=== PATIENT | female | born 1985 | race Caucasian/White ===

== ENCOUNTER → 2020-12-10 | Outpatient (CLI) | payer OTHER ==
--- NOTE | 2020-12-10 13:56 | RAD ---
XR ABDOMEN COMP ACUTE History: Reason: RUQ PAIN / Spl. Instructions: / History: Comparison: None. Technique: PA chest. Upright and supine radiographs of the abdomen. 5 total images. Findings: Lungs are adequately and symmetrically inflated. No airspace consolidation, pleural effusion or pneum othorax. Cardiac silhouette and pulmonary vasculature are within normal limits. Nonobstructive bowel gas pattern with stool and air throughout the colon to the rectum. No differenti al air-fluid levels or subcutaneous diaphragmatic free air. Postsurgical changes with chain sutures in the left upper quadrant and left midabdomen, possible carley luz maria bypass. Right upper quadrant cholecystectomy clips and left mid abdomen clips. Ovoid 1.3 cm calci fic density projecting over the lower pole left kidney and a few punctate densities projecting at the upper pole left kidney. Intrauterine device projects in the pelvis. No acute osseous abnormalities. Impression: 1. No acute cardiopulmonary findings. 2. Multiple calcific densities projecting over the bilateral kidneys may represent nephrolithiasis. No ureterolithiasis identified. 3. Nonobstructive bowel gas pattern. Suspected history of gastrointestinal surgery. Electronically signed by: Tomy Martell MD (12/10/2020 1:53 PM) [facility]
== END ==
LOC: RAD 12:42
PROVIDERS: ATTEND Family Medicine
DX: R10.11 Right upper quadrant pain (principal)
CPT/HCPCS: 74022

== ENCOUNTER 2020-12-31 23:18 | Emergency (ER) | payer OTHER ==
[~2020-12-31] VITALS: Ht 177.8 cm; Wt 158.0 kg
[2021-01-01] MEDS ORDERED: ONDANSETRON PF 4 MG/2 ML VIAL. IVP ONE (00:15)
[2021-01-01] MEDS ORDERED: MORPHINE SULFATE 4 MG/ML DISP.SYRIN. IV ONE ×2 (00:15→01:30)
[2021-01-01 00:38] LABS: BACTERIA,URINE 0 /HPF (0-FEW); BILIRUBIN,URINE NEG (NEG); CLARITY,URINE CLEAR; COLOR,URINE YELLOW; GLUCOSE,URINE NEG (NEG); NITRITE,URINE NEG (NEG); RBC,URINE 0 /HPF (0-2); SQUAMOUS EPITHELIAL CELL,UR OCC /LPF; UROBILINOGEN,URINE 0.2 mg/dL (0.2 mg/dL); WBC,URINE OCC /HPF (0-4)
[2021-01-01 00:56] LABS: BASO % 0 % (0-3); EOS % 0 % (0-3); HEMATOCRIT 36.3 % (36.0-47.0); LYMPH # 2.1 x10^3/uL (1.0-4.8); LYMPH % 22 % (24-48); MEAN CORPUSCULAR HEMOGLOBIN 31 pg (25-35); MEAN CORPUSCULAR HGB CONC 33 g/dL (31-37); MEAN CORPUSCULAR VOLUME 93 fL (79-100); MONO # 0.6 x10^3/uL (0.0-1.1); MONO % 7 % (0-9); NEUT # 6.7 x10^3uL (1.8-7.7); NEUT % 71 % (31-73); PLATELET COUNT 212 x10^3/uL (140-400); RED BLOOD COUNT 3.91 x10^6/uL (3.50-5.40); RED CELL DISTRIBUTION WIDTH 13.4 % (11.5-14.5); WHITE BLOOD COUNT 9.5 x10^3/uL (4.0-11.0)
[2021-01-01 01:01] LABS: CALCIUM 8.5 mg/dL (8.5-10.1); CREATININE 0.9 mg/dL (0.6-1.0); GFR 70.5; POTASSIUM 3.2 mmol/L (3.5-5.1)
--- NOTE | 2021-01-01 01:05 | RAD ---
CT abdomen and pelvis without contrast: Reason for examination: Left flank pain. Helical images were obtained through the abdomen and pelvis with no intravenous or oral contrast admi nistered. Reconstruction was performed in sagittal and coronal planes. Exposure: One or more of the following individualized dose reduction techniques were utilized for thi s examination: 1. Automated exposure control 2. Adjustment of the mA and/or kV according to patient size 3. Use of iterative reconstruction technique. The lung bases are clear. The heart size is normal cardial effusion. No abnormality seen at the liver, spleen, adrenal glands or pancreas. Gallbladder is surgically absen t. The abdominal aorta and inferior vena cava show no acute abnormalities. No abnormality seen at the appendix. The colon shows no diverticulosis, diverticulitis or colitis. The small intestinal tract s hows no abnormal dilatation or wall thickening and no apparent obstruction. 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 The kidneys bilaterally show nonobstructing renal calculi. The right kidney show s no mass, hydronephrosis or obstructive uropathy. The left kidney however shows moderate hydronephro sis which appears be due to a 1.3 x 1.1 cm obstructing calculus in the proximal left ureter. The bladder is not distended. IUD is seen in the uterus. No adnexal masses are evident. No free fluid or free air is seen. No acute bony abnormalities are seen. IMPRESSION: Bilateral nonobstructing renal calculi. 1.3 x 1.1 cm obstructing calculus in the proximal left ureter with moderate hydronephrosis. Electronically signed by: Elma Jain MD (01/01/2021 1:02 AM) [facility]
--- NOTE | 2021-01-01 01:06 | PHYS DOC ---
Past History Past Medical History: Other Additional Past Medical Histor: heart valve, skin removal surgery, weight loss surgery, gall bladder Alcohol Use: None Adult General Chief Complaint Chief Complaint: FLANK PAIN HPI HPI Patient is a 35-year-old female with a past medical history of multiple episodes of renal lithiasis who presents with a chief complaint of acute onset left flank pain. States he was at home a few hours ago began to have left-sided flank pain with some radiation to the groin, 7 out of 10, sharp in nature. States she has had similar episodes of this in the past and always had a kidney stone. States that she is always been able to pass them and has never had a surgery for this. Denies any recent travel, illnesses, fevers, chest pain, shortness of breath, other abdominal pain, vomiting, dysuria, hematuria or blood in the stool. Does endorse mild nausea when the pain gets bad but has not thrown up. Review of Systems Review of Systems Review of systems otherwise unremarkable except noted in HPI Current Medications Current Medications Current Medications Medications (Trade) Dose Ordered Sig/Ajay Start Time Stop Time Status Last Admin Dose Admin Morphine Sulfate (Morphine 4mg Syringe) 4 mg 1X ONCE 01/01/21 00:15 01/01/21 00:19 DC 01/01/21 00:35 4 MG Ondansetron HCl (Zofran) 4 mg 1X ONCE 01/01/21 00:15 01/01/21 00:19 DC 01/01/21 00:35 4 MG Allergies Allergies Allergies Coded Allergies Type Severity Reaction Last Updated Verified gentamicin Allergy Unknown 01/01/21 Yes Physical Exam Physical Exam Constitutional: Well developed, well nourished, no acute distress, non-toxic appearance. [] Cardiovascular:Heart rate regular rhythm, no murmur [] Lungs & Thorax: Bilateral breath sounds clear to auscultation [] Abdomen: soft, no tenderness, no masses, no pulsatile masses. [] Skin: Warm, dry, no erythema, no rash. [] Back: No tenderness, no CVA tenderness. [] Extremities: No tenderness, no cyanosis, no clubbing, ROM intact, no edema. [] Neurologic: Alert and oriented X 3, normal motor function, normal sensory function, no focal deficits noted. [] Psychologic: Affect normal, judgement normal, mood normal. [] Current Patient Data Vital Signs Vital Signs Date Time Temp Pulse Resp B/P (MAP) Pulse Ox O2 Delivery O2 Flow Rate FiO2 01/01/21 00:35 18 97 01/01/21 00:27 67 121/86 (98) Room Air 12/31/20 23:18 97.6 Lab Results Laboratory Tests Test 12/31/20 23:45 01/01/21 00:15 01/01/21 00:30 Urine Collection Type Unknown Urine Color Yellow Urine Clarity Clear Urine pH 5.5 Urine Specific [place] 1.020 Urine Protein Neg (NEG-TRACE) Urine Glucose (UA) Neg mg/dL (NEG) Urine Ketones (Stick) Trace mg/dL (NEG) Urine Blood Neg (NEG) Urine Nitrite Neg (NEG) Urine Bilirubin Neg (NEG) Urine Urobilinogen Dipstick 0.2 mg/dL (0.2 mg/dL) Urine Leukocyte Esterase Neg (NEG) Urine RBC 0 /HPF (0-2) Urine WBC Occ /HPF (0-4) Urine Squamous Epithelial Cells Occ /LPF Urine Bacteria 0 /HPF (0-FEW) POC Urine HCG, Qualitative hcg negative (Negative) White Blood Count 9.5 x10^3/uL (4.0-11.0) Red Blood Count 3.91 x10^6/uL (3.50-5.40) Hemoglobin 12.0 g/dL (12.0-15.5) Hematocrit 36.3 % (36.0-47.0) Mean Corpuscular Volume 93 fL (79-100) Mean Corpuscular Hemoglobin 31 pg (25-35) Mean Corpuscular Hemoglobin Concent 33 g/dL (31-37) Red Cell Distribution Width 13.4 % (11.5-14.5) Platelet Count 212 x10^3/uL (140-400) Neutrophils (%) (Auto) 71 % (31-73) Lymphocytes (%) (Auto) 22 % (24-48) L Monocytes (%) (Auto) 7 % (0-9) Eosinophils (%) (Auto) 0 % (0-3) Basophils (%) (Auto) 0 % (0-3) Neutrophils # (Auto) 6.7 x10^3uL (1.8-7.7) Lymphocytes # (Auto) 2.1 x10^3/uL (1.0-4.8) Monocytes # (Auto) 0.6 x10^3/uL (0.0-1.1) Eosinophils # (Auto) 0.0 x10^3/uL (0.0-0.7) Basophils # (Auto) 0.0 x10^3/uL (0.0-0.2) EKG EKG [] Radiology/Procedures Radiology/Procedures []CT abdomen and pelvis without contrast: Reason for examination: Left flank pain. Helical images were obtained through the abdomen and pelvis with no intravenous or oral contrast administered. Reconstruction was performed in sagittal and coronal planes. Exposure: One or more of the following individualized dose reduction techniques were utilized for this examination: 1. Automated exposure control 2. Adjustment of the mA and/or kV according to patient size 3. Use of iterative reconstruction technique. The lung bases are clear. The heart size is normal cardial effusion. No abnormality seen at the liver, spleen, adrenal glands or pancreas. Gallbladder is surgically absent. The abdominal aorta and inferior vena cava show no acute abnormalities. No abnormality seen at the appendix. The colon shows no diverticulosis, diverticulitis or colitis. The small intestinal tract shows no abnormal dilatation or wall thickening and no apparent obstruction. 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 The kidneys bilaterally show nonobstructing renal calculi. The right kidney shows no mass, hydronephrosis or obstructive uropathy. The left kidney however shows moderate hydronephrosis which appears be due to a 1.3 x 1.1 cm obstructing calculus in the proximal left ureter. The bladder is not distended. IUD is seen in the uterus. No adnexal masses are evident. No free fluid or free air is seen. No acute bony abnormalities are seen. IMPRESSION: Bilateral nonobstructing renal calculi. 1.3 x 1.1 cm obstructing calculus in the proximal left ureter with moderate hydronephrosis. Electronically signed by: Elma Jain MD (01/01/2021 1:02 AM) [facility] Heart Score C/O Chest Pain: No Risk Factors: Risk Factors: DM, Current or recent (<one month) smoker, HTN, HLP, family history of CAD, obesity. Risk Scores: Risk Factors: DM, Current or recent (<one month) smoker, HTN, HLP, family history of CAD, obesity. Course & Med Decision Making Course & Med Decision Making Patient is a 35-year-old female who presents with acute onset left flank pain and history of renal stones Vital signs not concerning. Physical exam noted above. IV placed with Zofran given for nausea and morphine for pain. CT scan notable for a 1.3 cm obstructing calculus in the proximal most ureter with moderate hydronephrosis. Patient has no tachycardia, no fever, no leukocytosis, normal creatinine, normal urine with no hematuria or signs of infection. Pain well controlled in the emergency department. Nausea well controlled in the emergency department. Discussed with patient and family the need for urology consultation and possible intervention. Offered to call the urologist while in the emergency department to see if she would be appropriate for transfer and admission for continued evaluation and treatment. Patient and family stated that she has been through this before and even though it was a large stone she would like to try watchful waiting and calling urology in the morning. States that last time she had this she tried to call the urologist at [facility] but they would not accept her as a patient because they did not accept her [employer] insurance. Discussed with patient and family that even though all of her other markers look well, this is a large stone that is close to the kidney and could cause excessive pain, nausea and vomiting and kidney damage if it backs up too much and there and needs to see or talk to urologist. Patient and family asked for contact information to another urologist, stated they would like to go home and call them in the morning. Gave patient [facility] contact information as well as urology and strongly encouraged to call first thing in the morning and talk to a urologist. Advised to make sure they actually talk to a urologist clinic first thing in the morning and establish care and set up an appointment within the next 48 hours. Gave pain management instructions for home. Gave strict return precautions to the ED. Family grateful, verbalized understanding and agreed with plan of discharge. [] Dragon Disclaimer Dragon Disclaimer This electronic medical record was generated, in whole or in part, using a voice recognition dictation system. Departure Departure: Impression: Primary Impression: Flank pain Additional Impressions: Renal lithiasis Hydronephrosis Ureterolithiasis Disposition: 01 DC HOME SELF CARE/HOMELESS Condition: GOOD Referrals: RONA HOWELL MD (PCP) Patient Instructions: Diet for Kidney Stones, Kidney Stones Additional Instructions: Please read all of the attached information. As discussed you have an approximately 1.3 cm stone on the left side. This is a fairly large stone and needs to be evaluated by urology. Currently you have no fever, your heart rate and other vital signs are normal, you have no signs of infection in your blood, your kidney function appears well and you got no blood in your urine. Discussed all findings with you including vital signs, laboratory analysis, urinalysis and CT. Discussed pain management at home. Discussed calling the urologist here in the emergency department to discuss your case and see if you would be appropriate for transfer and admission to another facility for continued evaluation, management and treatment by the urology team and risks associated with not doing that including excessive pain, nausea and vomiting that will not quit, blood in your urine, kidney damage. After discussion and shared decision making you felt okay going home with appropriate medical management, watchful waiting and calling the urology services in the morning. You can try the [facility]'s urology clinic located in [place] at [phone] or the one in [place] at [phone] or that main campus on [facility] at [phone] this is the main number for all 3 You can also try urology at [phone] Please try it all of these. No matter to you get in with just make sure to talk to a urologist first thing in the morning and set up an appointment with a urologist in the next 48 hours. As discussed please come back to the emergency department immediately with any of the new or concerning symptoms or worsening of symptoms that we discussed. Scripts Ondansetron Hcl (ZOFRAN) 4 Mg Tablet 1 TAB PO PRN Q6HRS PRN for NAUSEA for 10 Days, #20 TAB 2 Refills Prov: KIMBERLY QUINTANILLA MD 01/01/21 Tamsulosin Hcl (FLOMAX) 0.4 Mg Cap.er.24h 1 CAP PO DAILY for kidney stone for 30 Days, #30 CAP 11 Refills Prov: KIMBERLY QUINTANILLA MD 01/01/21 Oxycodone HCl (Roxicodone) 5 Mg Tablet 2 TAB PO TID PRN for kidney stone pain MDD 12 Tablet(s) for 7 Days, #40 TAB 0 Refills Prov: KIMBERLY QUINTANILLA MD 01/01/21 Problem Qualifiers KIMBERLY QUINTANILLA MD Jan 01, 2021 01:06
[2021-01-01] MEDS ORDERED: TAMS0.4C97 PO (01:26)
[2021-01-01] MEDS ORDERED: OXYC5TAB88 PO (01:26)
[2021-01-01] MEDS ORDERED: ONDA4TAB7 PO (01:26)
[2021-01-01 01:29] VITALS: BP 112/74
[2021-01-01] MEDS ORDERED: KETOROLAC 15 MG/ML VIAL. IVP ONE (01:30)
[2021-01-01] MEDS ORDERED: TAMSULOSIN 0.4 MG CAP.ER.24H. PO ONE (01:30)
== END 2021-01-01 01:40 | disposition home or self-care (01) ==
LOC: ER 23:18
DX: N13.2 Hydronephrosis with renal and ureteral calculous obstruction (principal); Z88.1 Allergy status to other antibiotic agents
CPT/HCPCS: 36415; 74176; 80048; 81001; 81025; 85025; 96374; 96375; 96376; 99284; J1885; J2270; J2405

== ENCOUNTER → 2021-07-01 | Outpatient (CLI) | payer OTHER ==
[~2021-07-01] MED LIST: ONDA4TAB7 PO; OXYC5TAB88 PO; TAMS0.4C97 PO
--- NOTE | 2021-07-01 17:26 | RAD ---
PA lateral chest x-ray HISTORY: Dry cough, left-sided pleuritic chest pain, shortness of breath. FINDINGS: Heart size normal. Mediastinal silhouette is normal. No pneumothorax, pulmonary opacities o r pleural effusions. Mild thoracic scoliosis.. IMPRESSION: No acute process. Electronically signed by: Jorge L Sebastian MD (07/01/2021 5:24 PM) [facility]
== END ==
LOC: RAD 17:07
PROVIDERS: ATTEND Physician Assistant
DX: J40 Bronchitis, not specified as acute or chronic (principal); M41.84 Other forms of scoliosis, thoracic region
CPT/HCPCS: 71046

== ENCOUNTER 2021-11-07 23:02 | Emergency (ER) | payer OTHER ==
[~2021-11-07] VITALS: Ht 177.8 cm; Wt 79.6 kg
[2021-11-07] MEDS ORDERED: prozac (23:24)
[2021-11-07] MEDS ORDERED: torsemide (23:24)
[2021-11-07] MEDS ORDERED: omeprazole (23:24)
[2021-11-07] MEDS ORDERED: VITAMINS (23:24)
[2021-11-07] MEDS ORDERED: topamax (23:24)
[2021-11-07] MEDS ORDERED: [UNRECOGNIZED DRUG - OTHER] (23:24)
[2021-11-07] MEDS ORDERED: potassium chloride (23:24)
--- NOTE | 2021-11-07 23:25 | PHYS DOC ---
Past History Past Medical History: Other Additional Past Medical Histor: heart valve, skin removal surgery, weight loss surgery, gall bladder Alcohol Use: None Adult General Chief Complaint Chief Complaint: CHEST PAIN HPI HPI Patient is a 36-year-old female presenting for chest pain. 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 Nothing known makes better, palpation of chest wall makes worse. Patient describes pain as tightness around chest that radiates to bilateral upper extremities with associated numbness and tingling of hands. Timing of symptoms has been constant since onset. She admits she has been under more stress than usual as she works to organize staffing in healthcare. Admits she has history of mitral valve prolapse but no other diagnosed cardiac issues or personal history of CAD and is currently established in an outpatient setting with a manager secondary. States she is otherwise been at her baseline health with no sick contacts, recent travel or other concerning infectious symptoms Review of Systems Review of Systems Fourteen body systems of review of systems have been reviewed. See HPI for pertinent positives and negative responses, other mak all other systems are negative, non-pertinent or non-contributory Allergies Allergies Allergies Coded Allergies Type Severity Reaction Last Updated Verified gentamicin Allergy Unknown 11/07/21 Yes Physical Exam Physical Exam Constitutional: Well developed, well nourished, no acute distress, non-toxic appearance. HENT: Normocephalic, atraumatic, bilateral external ears normal, oropharynx moist, no oral exudates, nose normal. Eyes: PERRLA, EOMI, conjunctiva normal, no discharge. Neck: Normal range of motion, no tenderness, supple, no stridor. Cardiovascular: Heart rate regular, sinus rhythm, no murmurs rubs or gallops, anterior chest wall tender to palpation Lungs & Thorax: Bilateral breath sounds clear to auscultation Abdomen: Bowel sounds normal, soft, no tenderness, no masses, no pulsatile masses. Nonsurgical abdomen, no peritoneal signs Skin: Warm, dry, no erythema, no rash. Back: No tenderness, no CVA tenderness. Extremities: No tenderness, no cyanosis, no clubbing, ROM intact, no edema. Neurologic: Alert and oriented X 3, grossly normal motor & sensory function, no focal deficits noted. Psychologic: Anxious affect and mood Current Patient Data Lab Results Laboratory Tests Test 11/07/21 23:40 11/07/21 23:59 11/08/21 00:16 White Blood Count 6.0 x10^3/uL Red Blood Count 4.19 x10^6/uL Hemoglobin 12.8 g/dL Hematocrit 37.8 % Mean Corpuscular Volume 90 fL Mean Corpuscular Hemoglobin 31 pg Mean Corpuscular Hemoglobin Concent 34 g/dL Red Cell Distribution Width 13.1 % Platelet Count 203 x10^3/uL Neutrophils (%) (Auto) 43 % Lymphocytes (%) (Auto) 48 % Monocytes (%) (Auto) 8 % Eosinophils (%) (Auto) 0 % Basophils (%) (Auto) 0 % Neutrophils # (Auto) 2.6 x10^3uL Lymphocytes # (Auto) 2.9 x10^3/uL Monocytes # (Auto) 0.5 x10^3/uL Eosinophils # (Auto) 0.0 x10^3/uL Basophils # (Auto) 0.0 x10^3/uL Sodium Level 143 mmol/L Potassium Level 3.6 mmol/L Chloride Level 108 mmol/L Carbon Dioxide Level 23 mmol/L Anion Gap 12 Blood Urea Nitrogen 12 mg/dL Creatinine 0.7 mg/dL Estimated GFR (Cockcroft-Gault) 93.6 Glucose Level 98 mg/dL Calcium Level 8.3 mg/dL Troponin I High Sensitivity < 4 ng/L TL-Itj-B-Type Natriuretic Peptide 60 pg/mL Influenza Type A (Rapid) Negative Influenza Type B (Rapid) Negative SARS-CoV-2 Antigen (Rapid) Negative Bedside Urine HCG, Qualitative hcg negative EKG EKG EKG ordered and interpreted by myself at 2320 hrs. as sinus rhythm at 72 bpm, unremarkable intervals, no axis deviation, no obvious ischemic findings, no STEMI Radiology/Procedures Radiology/Procedures XR CHEST 1V Clinical Indication: Reason: chest pain Comparison: Two-view chest July 01, 2021. Findings: Prominent stool in bowel below left hemidiaphragm. The cardiomediastinal silhouette is normal. Lungs are clear. There is no pneumothorax. No pleural effusion is appreciated. No acute bone abnormality. IMPRESSION: No acute cardiopulmonary process. Electronically signed by: Ridge Manley MD (11/08/2021 12:42 AM) [facility] Heart Score C/O Chest Pain: Yes HEART Score for Chest Pain: HEART Score for Chest Pain Response (Comments) Value History Slighlty/Non-Suspicious 0 ECG Normal 0 Age < 45 0 Risk Factors No Risk Factors 0 Troponin < Normal Limit 0 Total 0 Risk Factors: Risk Factors: DM, Current or recent (<one month) smoker, HTN, HLP, family history of CAD, obesity. Risk Scores: Risk Factors: DM, Current or recent (<one month) smoker, HTN, HLP, family history of CAD, obesity. Course & Med Decision Making Course & Med Decision Making ABCs unremarkable HPI physical exam and comprehensive ER work-up nonconcerning for any emergent or surgical issues Reviewed heart score with patient. Discussed little indication for further diagnostic work-up and/or need for hospitalization in an otherwise healthy, hemodynamically stable patient likely etiology of chest issues being noncardiac in nature Recommended supportive care practices in place PCP and manager secondary follow-up Corey Disclaimer Dragkathie Disclaimer This electronic medical record was generated, in whole or in part, using a voice recognition dictation system. Departure Departure: Impression: Primary Impression: Chest pain Disposition: HOME / SELF CARE / HOMELESS Condition: STABLE Referrals: RONA HOWELL MD (PCP) Additional Instructions: You were seen for chest pain. Your workup did not show any acute abnormalities today, but does not indicate that you do not have underlying cardiovascular disease. You do need to follow up with your primary doctor and your manager secondary for further evaluation and treatment. You should discuss need for repeat echocardiogram and potential need for outpatient cardiac stress test. Please continue supportive care practices such as heat application and Tylenol for pain. You should return to the ED if you develop worsening chest pain, shortness of breath, fever, abnormal sweating, leg swelling, or any other new or concerning symptoms. PERC Rule for PE PERC Rule for PE Response (Comments) Value Age > 50: No 0 HR > 100: No 0 Sa02 on room air <95%: No 0 Unilateral leg swelling: No 0 Hemoptysis: No 0 Recent surgery or trauma: No 0 Prior PE or DVT: No 0 Hormone use: No 0 Total 0 HEART Score for Chest Pain PTs The HEART Score for CP Pts C/O Chest Pain: Yes HEART Score for Chest Pain: HEART Score for Chest Pain Response (Comments) Value History Slighlty/Non-Suspicious 0 ECG Normal 0 Age < 45 0 Risk Factors No Risk Factors 0 Troponin < Normal Limit 0 Total 0 Risk Factors: Risk Factors: DM, Current or recent (<one month) smoker, HTN, HLP, family history of CAD, obesity. Risk Scores: Score 0 - 3: 2.5% MACE over next 6 weeks - Discharge Home Score 4 - 6: 20.3% MACE over next 6 weeks - Admit for Clinical Observation Score 7 - 10: 72.7% MACE over next 6 weeks - Early Invasive Strategies MICHAEL HUGHES DO Nov 07, 2021 23:25
[2021-11-08 00:02] LABS: BASO % 0 % (0-3); EOS % 0 % (0-3); HEMATOCRIT 37.8 % (36.0-47.0); HEMOGLOBIN 12.8 g/dL (12.0-15.5); LYMPH # 2.9 x10^3/uL (1.0-4.8); LYMPH % 48 % (24-48); MEAN CORPUSCULAR HEMOGLOBIN 31 pg (25-35); MEAN CORPUSCULAR HGB CONC 34 g/dL (31-37); MEAN CORPUSCULAR VOLUME 90 fL (79-100); MONO # 0.5 x10^3/uL (0.0-1.1); MONO % 8 % (0-9); NEUT # 2.6 x10^3uL (1.8-7.7); NEUT % 43 % (31-73); PLATELET COUNT 203 x10^3/uL (140-400); RED BLOOD COUNT 4.19 x10^6/uL (3.50-5.40); RED CELL DISTRIBUTION WIDTH 13.1 % (11.5-14.5)
[2021-11-08 00:14] LABS: CALCIUM 8.3 mg/dL (8.5-10.1); CREATININE 0.7 mg/dL (0.6-1.0); GFR 93.6; POTASSIUM 3.6 mmol/L (3.5-5.1)
[2021-11-08 00:42] LABS: INFLUENZA A PATIENT NEGATIVE (NEGATIVE); INFLUENZA B PATIENT NEGATIVE (NEGATIVE)
--- NOTE | 2021-11-08 00:45 | RAD ---
XR CHEST 1V Clinical Indication: Reason: chest pain Comparison: Two-view chest July 01, 2021. Findings: Prominent stool in bowel below left hemidiaphragm. The cardiomediastinal silhouette is normal. Lungs are clear. There is no pneumothorax. No pleural effusion is appreciated. No acute bone abnormality. IMPRESSION: No acute cardiopulmonary process. Electronically signed by: Ridge Manley MD (11/08/2021 12:42 AM) [facility]
[2021-11-08 01:30] VITALS: BP 108/62
[2021-11-08 01:39] LABS: BACTERIA,URINE FEW /HPF (0-FEW); BILIRUBIN,URINE NEG (NEG); CLARITY,URINE CLOUDY; COLOR,URINE YELLOW; GLUCOSE,URINE NEG (NEG); NITRITE,URINE NEG (NEG); RBC,URINE >40 /HPF (0-2); SQUAMOUS EPITHELIAL CELL,UR OCC /LPF; UROBILINOGEN,URINE 0.2 mg/dL (0.2 mg/dL)
[2021-11-08] MEDS ORDERED: IV RINGERS SOLUTION,LACTATED 1,000 ML IV ONE (03:45)
--- NOTE | 2021-11-08 05:57 | EKG ---
[address] [address] Test Date: 2021-11-07 Test Time: 23:11:25 Pat Name: YOEL ISABEL Department: Room: Gender: F Vehicle Maintenance Technician: default user : [id number] Requested By: MICHAEL HUGHES Order Number: [id number] Reading MD: Yared Nagy MD Measurements Intervals [place] Rate: 72 P: IN: QRS: 5 QRSD: 80 T: 15 QT: 394 QTc: 433 Interpretive Statements SR Electronically Signed On 11-09-2021 9:15:14 HEEL COVERER MACHINE OPERATOR by Yared Nagy MD
== END 2021-11-08 02:00 | disposition home or self-care (01) ==
LOC: ER 23:02
DX: R07.89 Other chest pain (principal); Z20.822 Contact with and (suspected) exposure to COVID-19; Z88.1 Allergy status to other antibiotic agents
CPT/HCPCS: 36415; 71045; 80048; 81001; 81025; 83880; 84484; 85025; 87428; 93005; 99285; C9803; U0003

== ENCOUNTER → 2021-12-29 | Outpatient (CLI) | payer OTHER ==
[~2021-12-29] MED LIST changes: +IOHEXOL 350 MG/ML 100 ML VIAL. IV ONE; +VITAMINS; +[UNRECOGNIZED DRUG - OTHER]; +omeprazole; +potassium chloride; +prozac; +topamax; +torsemide
--- NOTE | 2021-12-29 17:39 | RAD ---
Exam: CT neck with contrast INDICATION: Cervicalgia, right shoulder pain TECHNIQUE: Sequential axial images through the neck obtained following the administration 100 mL of I sovue-370 IV contrast. Sagittal and coronal reformatted images were reconstructed from the axial data and reviewed. 3-D reformatted images were reconstructed from the axial data and reviewed. Exposure: One or more of the following in the visualized dose reduction techniques were utilized for this examination: 1. Automated exposure control 2. Adjustment of the MA and/or KV according to patient size 3. Use of iterative of reconstructive technique Comparisons: None FINDINGS: Visualized intracranial structures are unremarkable. Visualized portions of thoracic aorta are unremarkable. Standard three-vessel arch anatomy. Right common carotid artery is patent without evidence of stenosis, occlusion or aneurysm. Cervical s egment of the right internal carotid artery is patent without evidence of stenosis, occlusion or aneu rysm. Left common carotid artery is patent without evidence of stenosis, occlusion or aneurysm. Cervical se gment of the left internal carotid artery is patent without evidence of stenosis, occlusion or aneury sm. Right vertebral artery is patent to the basilar confluence without evidence of stenosis, occlusion or aneurysm. Left vertebral artery is patent to basilar confluence without evidence of stenosis, occlusion or aneu rysm. Visualized paraspinal soft tissues are unremarkable. Straightening of cervical spine which may positional. Vertebral body heights are well-maintained. No significant spondylotic change in the cervical spine. IMPRESSION: Unremarkable CTA of the neck. Electronically signed by: Jagdish Hamilton MD (12/29/2021 5:36 PM) [facility]
== END ==
LOC: RAD 16:30
PROVIDERS: ATTEND Specialist
DX: M54.2 Cervicalgia (principal)
CPT/HCPCS: 70498; Q9967